=== PATIENT | female | born 1945 | race Two or more races ===

== ENCOUNTER 2022-06-26 05:37 | Day surgery (SDC) | payer OTHER ==
[~2022-06-26] VITALS: Ht 152.4 cm; Wt 64.4 kg
[~2022-06-26 05:37] MED LIST: ECOTRIN81 MG PO
[2022-06-26] MEDS ORDERED: CEPHALEXIN500 MG PO (11:00)
[2022-06-26] MEDS ORDERED: CORTISPORIN EAR10 M1 OTIC (11:00)
== END 2022-06-26 14:25 | disposition home or self-care (01) ==
LOC: CIR.AMB 05:37
PROVIDERS: ATTEND Otolaryngology Otology & Neurotology
DX: H71.22 Cholesteatoma of mastoid, left ear (principal); H72.12 Attic perforation of tympanic membrane, left ear; H90.A12 Conductive hearing loss, unilateral, left ear with restricted hearing on the contralateral side; Z88.1 Allergy status to other antibiotic agents; Z20.822 Contact with and (suspected) exposure to COVID-19; I10 Essential (primary) hypertension